=== PATIENT | male | born 1965 | race Caucasian/White ===

== ENCOUNTER 2017-05-25 17:47 | Emergency (ER) | payer BC ==
[~2017-05-25] VITALS: Ht 177.8 cm; Wt 81.6 kg
[2017-05-25 18:05] VITALS: BP 134/88
--- NOTE | 2017-05-25 18:15 | NUR ---
Patient eloped from facility. ER MD notified.
== END 2017-05-25 18:17 | disposition left against medical advice (07) ==
LOC: ER 17:50
DX: Z53.21 Procedure and treatment not carried out due to patient leaving prior to being seen by health care provider (principal)
CPT/HCPCS: A4606; Z7610